=== PATIENT | female | born 1985 | race Native Hawaiian/Other Pacific Islander ===

== ENCOUNTER 2017-08-08 00:08 | Inpatient (IN) | payer BC ==
[2017-08-08 00:50] VITALS: BMI 28.1
[2017-08-08] MEDS ORDERED: ceFAZolin 2 GM in Sodium Chloride 0.9% 100 ML IVPB ONE (01:48)
[2017-08-08] MEDS ORDERED: Oxytocin 30 UNITS in Sodium Chloride 0.9% 500 ML IV ONE (02:10)
[2017-08-08] MEDS ORDERED: ceFAZolin IV 2 gm in Dextrose 2 GM/50 ML BAG IVPB ONE (02:15)
[2017-08-08 02:51] LABS: BASO % 0.4 % (0.0-2.0); EOS # 0.2 K/uL (0.0-0.7); EOS % 1.9 % (0.0-4.0); LYMPH # 1.9 K/uL (1.0-4.3); LYMPH % 17.1 % (20.0-40.0); MEAN CELL VOLUME 84.9 fl (81.0-99.0); MEAN CORPUSCULAR HEMOGLOBIN 27.9 pg (27.0-31.0); MEAN CORPUSCULAR HGB CONC 32.9 g/dL (33.0-37.0); MEAN PLATELET VOLUME 9.5 fl (7.2-11.7); MONO # 0.8 K/uL (0.0-0.8); MONO % 7.3 % (0.0-10.0); NEUT # 8.2 K/uL (1.8-7.0); NEUT % 73.3 % (50.0-75.0); NRBC % 0.5 % (0.0-0.0); RBC 4.28 Mil/uL (3.80-5.20); RED CELL DISTRIBUTION WIDTH 14.2 % (11.5-14.5); WHITE BLOOD COUNT 11.2 K/uL (4.8-10.8)
[2017-08-08] MEDS: Lactated Ringer's 1,000 ML IV SCH ×4 (05:00→18:57)
--- NOTE | 2017-08-08 06:22 | OBHP ---
Datetime: 08/08/2017 02:01 IP Adm Impression: Term, intrauterine ; No Active Labor; Intact Membranes IP Admit Plan: Admit to unit; Initiate Section protocol Admit Comment, IP Provider: 32 yo IUP @ 39.1 weeks GA based on LMP 11/07/16, C/W first trimest er US, ADEN 08/14/17 presents to L_D for repeat scheduled . Pt's first was in 04/03/2013 in [facility] due weak baby heartbeat. Pt reports +FM. Denies LOF, VB or ctx. Pt is GB S negative. 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 neg pap on 03/03/17 Ob hx: in 04/03/13 due to weak baby heartbeat Pmhx: denies Pshx: social hx: denies smoking, EtOH use or recreational drug uses family hx: father of CAD at 69 Assessment: 32 yo IUP@39.1 weeks GA Previous C/S x 1 undoc scar Plan: Admit to L_D Initiate protocol Intermittent FHT Labs: CBC, type and screen Case d/w with on-call OB hospitalist Sultan Eagle, [id number] Ob Attending note: Pt seen and examined. SHe also requested BTL voluntary sterilization. She was counselled in the office and today. Informed consent obtained. MAHNDO Extremities - PN: Normal Abdomen - PN: Normal Back - PN: Normal Lungs - PN: Normal Heart - PN: Normal Neurologic - PN: Normal HEENT - PN: Normal General - PN: Normal FHR - Baseline A Provider: 140s IP Hx Assessment: The History has been Reviewed and is Current Vital Signs Provider: Reviewed; Within Normal Limits IP Chief Complaint: Scheduled Section NICHD Variability Prov Fetus A: Moderate 6-25bpm NICHD Accel Fetus A IP Provider: [id number] FHR Category Provider Fetus A: Category I NICHD Decel Fetus A IP Provider: None
[2017-08-08] MEDS ORDERED: Morphine 1 mg/ml preservative-free Inj(Duramorph) ONE (06:37)
[2017-08-08] MEDS ORDERED: ePHEDrine 50 mg/ml Inj ONE (06:50)
[2017-08-08] MEDS ORDERED: Oxycodone/Acetaminophen 5/325 mg Tab PO PRN (07:41)
[2017-08-08] MEDS ORDERED: DiphenhydrAMINE 50 mg/ml Inj IVP PRN (08:12)
[2017-08-08] MEDS: Simethicone 80 mg Chewtab PO SCH ×2 (17:59→21:38)
[2017-08-09] MEDS: Simethicone 80 mg Chewtab PO SCH ×4 (05:15→22:25)
[2017-08-09 07:29] LABS: HEMOGLOBIN 10.6 g/dL (12.0-16.0); MEAN CELL VOLUME 83.5 fl (81.0-99.0); MEAN CORPUSCULAR HEMOGLOBIN 28.7 pg (27.0-31.0); MEAN CORPUSCULAR HGB CONC 34.3 g/dL (33.0-37.0); RBC 3.7 Mil/uL (3.80-5.20); RED CELL DISTRIBUTION WIDTH 13.6 % (11.5-14.5); WHITE BLOOD COUNT 14.7 K/uL (4.8-10.8)
[2017-08-09] MEDS ORDERED: Bisacodyl 5mg EC Tab PO PRN (07:41)
[2017-08-10] MEDS: Simethicone 80 mg Chewtab PO SCH ×4 (04:00→22:12)
--- NOTE | 2017-08-10 09:57 | OBPPN ---
Datetime: 08/09/2017 09:39 PP Pain Prov: Within normal limits PP Nausea Prov: Denies PP Flatus Prov: Yes PP Breasts Prov: Normal PP Heart Prov: Normal PP Lungs Prov: Normal PP Abdomen/Uterus Prov: Normal PP Lochia Prov: Normal PP Vulva/Perineum Prov: Normal PP CVA Tenderness Prov: Normal PP Extremities Prov: Normal PP Comments Phys Exam Prov: Incision clean, dry, intact Uterus firm, below umbilicus No deep calf Tenderness bilaterally PP Impression Prov: Normal progression PP Plan Prov: Continue present management PP Progress Note Prov: Postop day #1 status post repeat , recovering well Postoperative CBC Connelly out, very check Out of bed, ambulating Pain control Regular diet IP PP Procedures: None Vital Signs Provider PP: Reviewed; Within Normal Limits
--- NOTE | 2017-08-10 12:16 | OBPPN ---
Datetime: 08/10/2017 12:13 PP Pain Prov: Within normal limits PP Nausea Prov: Denies PP Flatus Prov: Yes PP Breasts Prov: Normal PP Heart Prov: Normal PP Lungs Prov: Normal PP Abdomen/Uterus Prov: Normal PP Lochia Prov: Normal PP Vulva/Perineum Prov: Normal PP CVA Tenderness Prov: Normal PP Extremities Prov: Normal PP Comments Phys Exam Prov: Fundus firm under umbilicus Incision clean/dry/intact PP Impression Prov: Normal progression PP Plan Prov: Continue present management PP Progress Note Prov: Patient denies CP, no SOB, no N/V, tolerating Po diet, ambulating/voidnig wel l, mild lochia, +flatus, abdominal pain tolerable with meds A/P POD #2 1. Continue current orders 2. Encourage ambulation and IP PP Procedures: None Vital Signs Provider PP: Reviewed; Within Normal Limits
[2017-08-11] MEDS: Simethicone 80 mg Chewtab PO SCH ×2 (03:46→08:32)
--- NOTE | 2017-08-11 07:21 | OBDCSUM ---
Datetime: 08/11/2017 07:18 Discharged to, Provider: Home Follow up at, Provider: Dr. Mauro Disch Instr Activity: Normal activity; May Shower Disch Instr Diet: Regular Discharge Instructions, Provider: Routine instructions given Discharge Diagnosis, Provider: Term Delivered Discharge Time: 08/11/2017 07:18 Follow up in weeks, Provider: 1-2 weeks Disch Activity Restrictions: No exercising; No lifting; No driving; No sexual activity; Nothing in v agina - [place], tampons, douche Contraception after Delivery: Tubal Ligation
--- NOTE | 2017-08-11 07:21 | OBPPN ---
Datetime: 08/11/2017 07:15 PP Pain Prov: Within normal limits PP Nausea Prov: Denies PP Flatus Prov: Yes PP BM Prov: Yes PP Abdomen/Uterus Prov: Normal PP Lochia Prov: Normal PP Extremities Prov: Normal PP C/S Incision Prov: Normal PP Progress Prov: Normal PP Comments Phys Exam Prov: Incision intact w/ steri strips PP Impression Prov: Normal progression PP Plan Prov: Discharge PP Progress Note Prov: POD 3 s/p Repeat c/s, BTL, doing well, breast and bottle feeding Rx's motrin and percocet given Discharge home today Vital Signs Provider PP: Reviewed
[2017-08-11] MEDS ORDERED: Measles, Mumps, and Rubella 0.5 ML VIAL SC ONE (10:00)
[2017-08-11 17:42] VITALS: BP 135/79; PULSE 79; RESP 18; TEMP 98.6; O2SAT 98
== END 2017-08-11 13:35 | disposition home or self-care (01) | DRG 766 ==
LOC: H.EROB2 00:08 → H.L&D 01:59 → H.OB/GYN 11:15
PROVIDERS: ADMIT Obstetrics & Gynecology; ATTEND Obstetrics & Gynecology
PROC: 10D00Z1 Extraction of Products of Conception, Low, Open Approach (ICD-10-PCS; principal; 2017-08-08)
PROC: 0U570ZZ Destruction of Bilateral Fallopian Tubes, Open Approach (ICD-10-PCS; 2017-08-08)
PROC: 4A1HXCZ Monitoring of Products of Conception, Cardiac Rate, External Approach (ICD-10-PCS; 2017-08-08)
DX: O34.219 Maternal care for unspecified type scar from previous cesarean delivery (principal); Z30.2 Encounter for sterilization; Z37.0 Single live birth; Z3A.39 39 weeks gestation of pregnancy